=== PATIENT | female | born 1960 | race Caucasian/White ===

== ENCOUNTER → 2019-08-22 14:42 | Outpatient (CLI) | payer OTHER, SELFPAY ==
--- NOTE | 2019-08-22 | DI.MG.S_ITS ---
BILATERAL DIGITAL SCREENING MAMMOGRAM 3D/2D WITH CAD: 08/22/2019 CLINICAL: Routine screening. Comparison is made to exams dated: 01/31/2017 mammogram, 05/05/2014 mammogram, and 02/20/2013 mammogram - [facility]. There are scattered fibroglandular elements in both breasts. Current study was also evaluated with a Computer Aided Detection (CAD) system. No significant masses, calcifications, or other findings are seen in either breast. There has been no significant interval change. IMPRESSION: NEGATIVE There is no mammographic evidence of malignancy. A 1 year screening mammogram is recommended. This exam was interpreted at Station ID: [id number]. NOTE: For mammograms, a report in lay terms will be sent to the patient. Approximately 15% of breast malignancies will not be visualized mammographically. In the management of a palpable breast mass, a negative mammogram must not discourage biopsy of a clinically suspicious lesion. Electronically Signed By: Sanjeev hidalgo/cheyanne:08/22/2019 17:04:09 letter sent: Normal Exam ACR BI-RADS Category 1: Negative 3341F
== END ==
PROVIDERS: Family Provider Family Medicine; PCP Family Medicine; Visit Provider Family Medicine
DX: Z12.31 Encounter for screening mammogram for malignant neoplasm of breast (principal)
CPT/HCPCS: 77063; 77067

== ENCOUNTER → 2019-11-03 10:00 | Outpatient (CLI) | payer OTHER, SELFPAY | PROVIDERS: PCP Family Medicine; Visit Provider Family Medicine | DX: M85.88 Other specified disorders of bone density and structure, other site (principal); Z78.0 Asymptomatic menopausal state; K92.9 Disease of digestive system, unspecified; Z87.891 Personal history of nicotine dependence | CPT/HCPCS: 77080 ==

== ENCOUNTER → 2020-10-27 17:10 | Outpatient (CLI) | payer OTHER, SELFPAY ==
--- NOTE | 2020-10-27 | DI.MG.S_ITS ---
BILATERAL DIGITAL SCREENING MAMMOGRAM 3D/2D WITH CAD: 10/27/2020 CLINICAL: Routine screening. Comparison is made to exams dated: 08/22/2019 mammogram, 01/31/2017 mammogram, and 05/05/2014 mammogram - [facility]. There are scattered fibroglandular elements in both breasts. Current study was also evaluated with a Computer Aided Detection (CAD) system. There are benign calcifications in both breasts. No significant masses, calcifications, or other findings are seen in either breast. There has been no significant interval change. IMPRESSION: BENIGN There is no mammographic evidence of malignancy. A 1 year screening mammogram is recommended. This exam was interpreted at Station ID: [id number]. NOTE: For mammograms, a report in lay terms will be sent to the patient. Approximately 15% of breast malignancies will not be visualized mammographically. In the management of a palpable breast mass, a negative mammogram must not discourage biopsy of a clinically suspicious lesion. Electronically Signed By: Musa Rueda acr/cheyanne:10/28/2020 08:44:04 letter sent: Normal Exam ACR BI-RADS Category 2: Benign Finding(s) 3342F
== END ==
PROVIDERS: PCP Family Medicine; Referring Provider Family Medicine; Visit Provider Family Medicine
DX: Z12.31 Encounter for screening mammogram for malignant neoplasm of breast (principal)
CPT/HCPCS: 77063; 77067

== ENCOUNTER → 2021-10-10 10:15 | Outpatient (CLI) | payer OTHER, SELFPAY ==
[2021-10-10 11:39] LABS: COVID19 -Nasal RAPID Negative (Negative)
== END ==
PROVIDERS: PCP Family Medicine; Visit Provider Nurse Practitioner Family
DX: Z20.822 Contact with and (suspected) exposure to COVID-19 (principal)
CPT/HCPCS: 87635

== ENCOUNTER 2021-10-11 12:22 | Day surgery (SDC) | payer OTHER, SELFPAY ==
--- NOTE | 2021-10-11 | PATH_ITS ---
[facility] Accession Number: [id number] . 01 Material submitted: . gastrointestinal site - GASTRIC POLYP BIOPSY . 02 Diagnosis: Gastric Polyp Biopsy: Fundic gland polyp. No evidence of Helicobacter organisms on H/E stain. Negative for intestinal metaplasia. Negative for dysplasia and malignancy. V 10/13/2021 0919 Local . 02 Electronically signed: . Aurora Simons MD, Pathologist NPI- [id number] . 01 Gross description: . GASTRIC POLYP BIOPSY: Received in formalin is 1 fragment(s) of badillo, soft tissue measuring 0.4 x 0.4 x 0.3 cm submitted entirely in 1 cassette(s) /QBJ 10/12/2021 0254 Local . 02 Pathologist provided ICD-10: K31.7 . 02 CPT . 165079 Performed at: 01 [facility] [address], [place], [place] [id number] MD Cabrera Steen MD Phone: [phone] Performed at: 02 [facility] [address] [place], [place] [id number] MD Elisha Mejia MD Phone: [phone]
[2021-10-11 14:08] VITALS: BP 176/90; PULSE 94; RESP 16; TEMP 37; O2SAT 97; BMI 29.2
[2021-10-11] MEDS: SODIUM CHLORIDE 0.9% 1,000 ML 84 ML IV (14:20)
--- NOTE | 2021-10-11 14:50 | PM.HP.1 ---
History of Present Illness History of Present Illness Date Patient Seen: 10/11/21 Time Patient Seen: 14:51 Chief complaint: EGD Narrative: I reviewed my note from August 08. No changes. Patient History Surgical History H/O cataract extraction Status post laparoscopic Hamilton fundoplication Family & Social History Social History: household members spouse Tobacco & Substance use: Smoking Status Never smoker alcohol intake current alcohol intake frequency 0-2 drinks per day Substance Use Type does not use Meds Home Medications and Allergies Home Medications Medication Instructions Recorded Confirmed Type aspirin 81 mg tablet,delayed 81 mg PO QDAY #0 02/23/17 10/11/21 History release esomeprazole magnesium 20 mg 20 mg PO QDAY #0 02/23/17 10/11/21 History capsule,delayed release (Nexium) multivitamin (Multiple Vitamins) #0 02/23/17 History Fish Oil 1,000 mg PO DAILY 10/10/21 10/11/21 History atorvastatin 10 mg tablet 10 mg PO DAILY 10/10/21 10/11/21 History Allergies Allergy/AdvReac Type Severity Reaction Status Date / Time No Known Drug Allergies Allergy Verified 10/11/21 14:00 Review of Systems Review of Systems ROS: Yes All systems reviewed with the patient and are negative except as otherwise documented Exam Vital Signs (past 8 hours): - 10/11/21 14:08 Temperature 98.6 F Pulse Rate 94 H Respiratory Rate 16 Blood Pressure 176/90 H Pulse Oximetry 97 Oxygen Delivery Method Room Air Const General: cooperative and comfortable Orientation: alert HENMT Head: normocephalic Ears: external ears normal Nose: external nose normal Face and sinus: normal facial exam Mouth: oral mucosae normal Eyes General: appearance normal, both eyes and all related structures Neck Neck: normal visual inspection Chest Chest: normal inspection of the chest Resp Effort & Inspection: normal respiratory effort Cardio Rate: regular rate GI Inspection: normal to inspection Skin General: no rashes or lesions noted and No jaundice Neuro General: patient alert and moves all extremities Cognition: normal cognition Speech: speech normal Extrem General: no pedal edema Psych Appearance: grossly normal Assessment & Plan Assessment & Plan narrative: 61-year-old female with a personal history of Mercado's and prior Hamilton fundoplication. She has had some intermittent dysphagia. EGD is pursued today. Time Spent With Patient Critical Care time: I spent a total of [] minutes of critical care time on this patient's care today; this time is exclusive of procedural time.
--- NOTE | 2021-10-11 14:52 | PM.PREOP ---
Pre-operative Note COVID-19 COVID-19 status: Negative Result date/Date tested (Pos, Neg/Pending): 10/10/21 Interval Note History & Physical reviewed/Exam performed by Physician: Yes Changes to H&P: No ASA Class (for procedural sedation): II
[2021-10-11 16:25] VITALS: BP 124/76; PULSE 97; RESP 17; TEMP 36.6; O2SAT 95
--- NOTE | 2021-10-11 16:27 | P.OP.EGD_ITS ---
Operative Date/Time/Diagnoses Date of procedure: 10/11/21 Time of procedure: 16:27 Pre-op diagnosis: Mercado's dysphagia Post-op diagnosis: same Procedure & Clinicians Study performed: EGD with biopsies Same procedure as scheduled: Yes Indications: Mercado's dysphagia Surgeon: Hussain Stallings Procedure Notes SCOAP/Timeout: Done Procedure in detail: After the risks and benefits were explained, written and verbal informed consent was obtained. The patient was brought into the procedure room and placed into the left lateral decubitus position. Please see nurse functional analyst notes for sedation details. The scope was introduced into the mouth through the bite block and advanced under direct visualization to the 2nd portion of the duodenum. The scope was slowly withdrawn carefully examining the mucosa for any defects or lesions. Retroflexed views were accomplished in the stomach. The stomach was decompressed, the scope was then removed from the patient who did not demonstrate acceptable tolerance of the procedure today. It took much higher than average propofol to sufficiently sedate her for the esophageal intubation process. When the scope was in the stomach she was experiencing a moderate amount of laryngospasm with some mild tachycardia and I therefore felt it was appropriate to abbreviated the procedure. As indicated above we decompressed the stomach and I removed the endoscope. The patient recovered her spontaneous breathing without laryngospasm after the scope was removed. Vitals became much more stable and the patient was moved to the PACU. Sedation minutes: 8 Complications: none Impression: 1. Duodenum: This was unremarkable from the bulb through the 2nd portion. 2. Stomach: Patient had numerous small and medium-sized benign-appearing polyps throughout the body and fundus. No mass lesions. No outlet obstruction. No ulcerations. One of the polyps was sampled for histopathologic analysis from the body. In retroflexed views prior partial wrap could be identified. 3. Esophagus: The patient did have what appeared to be slippage of the prior Hamilton fundoplication. The diaphragmatic pinchcock and partial wrap were at approximately 36 cm from the incisors. There was at least 3 cm of gastric mucosa above this level. During the procedure the patient fairly freely refluxe d bile stained gastric fluid into her esophagus. As for the Z-line this appeared slightly irregular and subtly extended into the distal esophagus. This would be rated at C 0 M 0.5 by [place] criteria. Because the patient was not tolerating the procedure well with laryngospasm we did not pursue biopsies at the GE junction today. As far as a source for dysphagia, none was seen other than the slipped Hamilton. I did not appreciate a stricture mass lesion and no evidence of any active esophagitis. Post-procedure Plan for aftercare: 1. Continue Nexium. 2. Await histopathology. 3. I am hesitant to order a repeat EGD with monitored anesthesia for any type of surveillance in that she simply did not tolerate the procedure very well today in spite of maximum efforts from a monitored anesthesia standpoint. It may be appropriate for future EGD to consider securing the airway with endotracheal intubation. Disposition: PACU
[2021-10-11 16:30] VITALS: BP 124/75; PULSE 96; RESP 21; O2SAT 98
--- NOTE | 2021-10-11 16:34 | SUR.PHASEI ---
Patient sitting up, drinking water, denies any pain; no distress noted. VSS.
[2021-10-11 16:38] VITALS: BP 142/94; PULSE 86; RESP 22; O2SAT 98
[2021-10-11 16:41] VITALS: BP 139/84; PULSE 92; RESP 21; TEMP 36.2; O2SAT 98
== END 2021-10-11 16:49 | disposition home or self-care (01) ==
PROVIDERS: PCP Family Medicine; Referring Provider Internal Medicine Gastroenterology; Visit Provider Internal Medicine Gastroenterology
PROC: 0DJ08ZZ Inspection of Upper Intestinal Tract, Via Natural or Artificial Opening Endoscopic (ICD-10-PCS; CPT 43235; principal; 2021-10-11 14:30)
DX: K22.70 Barrett's esophagus without dysplasia (principal); R00.0 Tachycardia, unspecified; J38.5 Laryngeal spasm; K31.7 Polyp of stomach and duodenum
CPT/HCPCS: 43239; J2704

== ENCOUNTER → 2022-02-06 11:03 | Outpatient (CLI) | payer OTHER, SELFPAY | PROVIDERS: PCP Family Medicine; Referring Provider Family Medicine; Visit Provider Family Medicine | DX: M85.89 Other specified disorders of bone density and structure, multiple sites (principal); Z78.0 Asymptomatic menopausal state | CPT/HCPCS: 77080 ==

== ENCOUNTER → 2022-07-27 08:34 | Outpatient (CLI) | payer OTHER, SELFPAY ==
--- NOTE | 2022-07-27 | DI.MG.S_ITS ---
BILATERAL DIGITAL SCREENING MAMMOGRAM 3D/2D WITH CAD: 07/27/2022 CLINICAL: Routine screening. Comparison is made to exams dated: 10/27/2020 mammogram, 08/22/2019 mammogram, and 01/31/2017 mammogram - [facility]. There are scattered areas of fibroglandular density in both breasts (category b / 25%-50% glandular tissue). Current study was also evaluated with a Computer Aided Detection (CAD) system. There are benign calcifications in both breasts. No significant masses, calcifications, or other findings are seen in either breast. There has been no significant interval change. IMPRESSION: BENIGN There is no mammographic evidence of malignancy. A 1 year screening mammogram is recommended. Based on the Tyrer Cuzick model (a risk assessment model) the patient's lifetime risk is 8.4% and her 10 year risk is 3.7%. According to the ACR, ACS, and NCCN guidelines, an annual breast MRI exam along with mammogram is recommended if the patient's lifetime risk is 20% or greater. This exam was interpreted at Station ID: [id number]. NOTE: For mammograms, a report in lay terms will be sent to the patient. Approximately 15% of breast malignancies will not be visualized mammographically. In the management of a palpable breast mass, a negative mammogram must not discourage biopsy of a clinically suspicious lesion. Electronically Signed By: Paarm Negrete M.D., jr/cheyanne:07/27/2022 09:51:19 letter sent: Normal Exam ACR BI-RADS Category 2: Benign Finding(s) 3342F
== END ==
PROVIDERS: PCP Family Medicine; Referring Provider Family Medicine; Visit Provider Family Medicine
DX: Z12.31 Encounter for screening mammogram for malignant neoplasm of breast (principal)
CPT/HCPCS: 77063; 77067

== ENCOUNTER → 2022-10-02 10:19 | Outpatient (CLI) | payer OTHER, SELFPAY ==
--- NOTE | 2022-10-02 | DI.RAD.S_ITS ---
PROCEDURE: XR KNEE LT 3V INDICATIONS: LEFT KNEE PAIN TECHNIQUE: 3 views of the knee were acquired. COMPARISON: [facility], , KNEE 3V RIGHT, 02/27/2013, 7:17. FINDINGS: Bones: No fractures or dislocations. No suspicious bony lesions. Mild tricompartmental periarticular osteophyte formation. Soft tissues: No joint effusion. No suspicious soft tissue calcifications. IMPRESSION: Osteoarthritis. No acute fracture. No osseous lesion. If symptoms and/or clinical suspicion for pathology persist, further assessment with repeat, or advanced imaging (e.g., CT, MRI, or bone scan) may be helpful for further assessment. Dictated by: Gonzalez Parisi M.D. on 10/02/2022 at 11:16 Approved by: Gonzalez Parisi M.D. on 10/02/2022 at 11:16
== END ==
PROVIDERS: PCP Family Medicine; Referring Provider Family Medicine; Visit Provider Family Medicine
DX: M25.562 Pain in left knee (principal); M17.12 Unilateral primary osteoarthritis, left knee
CPT/HCPCS: 73562

== ENCOUNTER → 2023-09-01 08:43 | Outpatient (CLI) | payer OTHER, SELFPAY ==
--- NOTE | 2023-09-01 08:45 | DI.MG.S_ITS ---
BILATERAL DIGITAL SCREENING MAMMOGRAM 3D/2D WITH CAD: 09/01/2023 CLINICAL: Routine screening. Family history of breast cancer. Comparison is made to exams dated: 07/27/2022 mammogram, 10/27/2020 mammogram, 08/22/2019 mammogram, and 01/31/2017 mammogram - [facility]. There are scattered areas of fibroglandular density in both breasts (category b / 25%-50% glandular tissue). Current study was also evaluated with a Computer Aided Detection (CAD) system. There are benign calcifications in both breasts. No significant masses, calcifications, or other findings are seen in either breast. There has been no significant interval change. IMPRESSION: BENIGN There is no mammographic evidence of malignancy. A 1 year screening mammogram is recommended. Based on the Tyrer Cuzick model (a risk assessment model) the patient's lifetime risk is 8.1% and her 10 year risk is 3.7%. According to the ACR, ACS, and NCCN guidelines, an annual breast MRI exam along with mammogram is recommended if the patient's lifetime risk is 20% or greater. This exam was interpreted at Station ID: [id number]. NOTE: For mammograms, a report in lay terms will be sent to the patient. Approximately 15% of breast malignancies will not be visualized mammographically. In the management of a palpable breast mass, a negative mammogram must not discourage biopsy of a clinically suspicious lesion. Electronically Signed By: Sanjeev hidalgo/cheyanne:09/01/2023 09:48:53 letter sent: Normal Exam ACR BI-RADS Category 2: Benign Finding(s) 3342F
== END ==
PROVIDERS: PCP Family Medicine; Referring Provider Family Medicine; Visit Provider Family Medicine
DX: Z12.31 Encounter for screening mammogram for malignant neoplasm of breast (principal); Z80.3 Family history of malignant neoplasm of breast
CPT/HCPCS: 77063; 77067

== ENCOUNTER → 2024-09-25 10:04 | Outpatient (CLI) | payer MEDICARE, SELFPAY ==
--- NOTE | 2024-09-25 10:06 | DI.MG.S_ITS ---
BILATERAL DIGITAL SCREENING MAMMOGRAM 3D/2D WITH CAD: 09/25/2024 CLINICAL: Routine screening. Family history of breast cancer. Comparison is made to exams dated: 09/01/2023 mammogram, 07/27/2022 mammogram, 10/27/2020 mammogram, 08/22/2019 mammogram, and 01/31/2017 mammogram - [facility]. There are scattered areas of fibroglandular density (category b / 25%-50% glandular tissue). Current study was also evaluated with a Computer Aided Detection (CAD) system. There are stable bilateral post operative changes from prior reduction mammoplasty. No significant masses, calcifications, or other findings are seen in either breast. There has been no significant interval change. IMPRESSION: BENIGN Status post reduction mammoplasty. No mammographic evidence of malignancy. A 1 year screening mammogram is recommended. Based on the Tyrer Cuzick model (a risk assessment model) the patient's lifetime risk is 7.4% and her 10 year risk is 3.7%. According to the ACR, ACS, and NCCN guidelines, an annual breast MRI exam along with mammogram is recommended if the patient's lifetime risk is 20% or greater. This exam was interpreted at Station ID: [id number]. NOTE: For mammograms, a report in lay terms will be sent to the patient. Approximately 15% of breast malignancies will not be visualized mammographically. In the management of a palpable breast mass, a negative mammogram must not discourage biopsy of a clinically suspicious lesion. Electronically Signed By: Liz Cesar M.D., Ph.D. eb/:09/25/2024 17:38:52 letter sent: Normal Exam ACR BI-RADS Category 2: Benign
== END ==
PROVIDERS: PCP Family Medicine; Referring Provider Family Medicine; Visit Provider Family Medicine
DX: Z12.31 Encounter for screening mammogram for malignant neoplasm of breast (principal); Z80.3 Family history of malignant neoplasm of breast
CPT/HCPCS: 77063; 77067

== ENCOUNTER → 2025-02-24 11:36 | Outpatient (CLI) | payer OTHER, SELFPAY ==
--- NOTE | 2025-02-24 11:39 | DI.RAD.S_ITS ---
PROCEDURE: XR CERVICAL SPINE 4V OR 5V INDICATIONS: NECK PAIN TECHNIQUE: 5 views of the cervical spine acquired. COMPARISON: None. FINDINGS: Bones: No fractures or dislocations to the C7 level. Moderate C5-C6 and C6-C7 disc height loss with adjacent endplate sclerosis and anterior osteophytosis. Minimal retrolisthesis of C5 on C6 measures 0.1 cm. Oblique images demonstrate no bony foraminal stenoses. Soft tissues: No prevertebral soft tissue swelling. IMPRESSION: Mild degenerative change of the cervical spine without evidence of acute osseous abnormality. Dictated by: Haseeb Orosco M.D. on 02/25/2025 at 1:32 Approved by: Haseeb Orosco M.D. on 02/25/2025 at 1:34
== END ==
PROVIDERS: PCP Family Medicine; Referring Provider Family Medicine; Visit Provider Family Medicine
DX: M47.812 Spondylosis without myelopathy or radiculopathy, cervical region (principal); M54.2 Cervicalgia
CPT/HCPCS: 72050

== ENCOUNTER → 2025-11-03 14:33 | Outpatient (CLI) | payer OTHER, SELFPAY ==
--- NOTE | 2025-11-03 14:34 | DI.MG.S_ITS ---
MM screening mammo BI: 11/03/2025. BI-RADS: 2 CLINICAL: 65-year old female for bilateral screening mammogram. Tyrer-Cuzick lifetime risk of 8.0%. Current reported family history of breast cancer: daughter. The patient is status-post reduction mammoplasty. PRIOR EXAMS 09/25/2024, 09/01/2023, 07/27/2022, 10/27/2020, MAMMOGRAPHY TECHNIQUE: 2D and 3D (tomosynthesis) digital mammographic views obtained, with additional images as needed for full coverage. Current study was also evaluated with a Computer Aided Detection (CAD) system. DENSITY B. There are scattered areas of fibroglandular density. MAMMOGRAPHY FINDINGS Bilateral: Benign-appearing post-surgical changes noted. There are no suspicious masses, calcifications, or other findings in the breast. IMPRESSION: * No evidence of malignancy with benign findings. RECOMMENDATIONS Bilateral * Annual screening mammography. OVERALL ASSESSMENT CATEGORY BI-RADS-2: Benign. The [employer] recommends annual screening mammography beginning at age 40 for women with average risk of breast cancer. ELECTRONICALLY SIGNED: Liz Cesar M.D. on 11/07/2025 at 01:12:26 AM PT Interpreting Station ID: [id number]
== END ==
LOC: MAMMO 14:33
PROVIDERS: PCP Family Medicine; Referring Provider Family Medicine; Visit Provider Family Medicine
DX: Z12.31 Encounter for screening mammogram for malignant neoplasm of breast (principal); Z80.3 Family history of malignant neoplasm of breast
CPT/HCPCS: 77063; 77067

== ENCOUNTER → 2025-11-04 10:38 | Outpatient (CLI) | payer OTHER, SELFPAY ==
--- NOTE | 2025-11-04 10:39 | DI.RAD.S_ITS ---
PROCEDURE: XR DEXA AXIAL SKELETON INDICATIONS: Postmenopausal screening COMPARISON: [facility], CR, XR DEXA AXIAL SKELETON, 02/06/2022, 11:22. FINDINGS: Lumbar Spine L1 through L3: Bone mineral density 0.765 g/cm2, T score -2.3 osteopenia, change from previous-3.3%. Left Femoral Neck: Bone mineral density 0.594 g/cm2, T score -2.3 osteopenia, change from previous-11.5%. Left Hip: Bone mineral density 0.722 g/cm2, T score -1.8, osteopenia, change from previous-4.2%. Fracture Risk Calculation (when applicable): 10-year fracture risk of a major osteoporotic fracture 12 percent and of a hip fracture 2.3 percent. Increased risk compared to prior. (T score greater or equal to -1.0 to: NORMAL) (T score from -1.1 to -2.4: OSTEOPENIA) (T score less than or equal to -2.5: OSTEOPOROSIS) IMPRESSION: Decrease in overall bone mineral density compared to the prior exam, most pronounced in the femoral neck. Osteopenia elevates the patient's 10 year fracture risk as described. Follow-up guidelines as follows: Osteoporosis: Consider a repeat DEXA and Vertebral Fracture Assessment (VFA) exam in 2 years or sooner if medically necessary, to reassess this patient's status. Osteopenia: Consider a repeat DEXA in 2-3 years to reassess this patient's status, or if there is a new clinical indication. Normal: Consider a repeat DEXA in 5 years or sooner, or if there is a new clinical indication. All treatment decisions require clinical judgment and consideration of individual patient factors, including patient preferences, comorbidities, previous drug use, risk factors not captured in the FRAX model (e.g., frailty, falls, vitamin D deficiency, increased bone turnover, interval significant decline in bone density ) and possible under- or over-estimation of fracture risk by FRAX. In addition, the NOF Guide recommends that FDA-approved medical therapies be considered in postmenopausal women and men age >= 50 years with a: * Hip or vertebral (clinical or morphometric) fracture * T-score of <=-2.5 at the spine or hip * Ten-year fracture probability by FRAX of >= 3% for hip fracture or >=20% for major osteoporotic fracture. Dictated by: Caitlyn Palmer M.D. on 11/04/2025 at 15:59 Approved by: Caitlyn Palmer M.D. on 11/04/2025 at 16:00
== END ==
PROVIDERS: PCP Family Medicine; Referring Provider Family Medicine; Visit Provider Family Medicine
DX: M85.89 Other specified disorders of bone density and structure, multiple sites (principal); Z78.0 Asymptomatic menopausal state
CPT/HCPCS: 77080